=== PATIENT | female | born 1975 | race Caucasian/White ===

== ENCOUNTER 2017-06-29 15:14 | Inpatient (IN) | payer OTHER ==
[~2017-06-29] VITALS: Ht 170.1 cm; Wt 60.8 kg
[2017-06-29 15:15] VITALS: BP 108/55
[2017-06-29 16:00] VITALS: BP 132/70
[2017-06-29 16:15] LABS: BASO % 0.4 % (0.0-1.0); EOS # 0.2 10*3/uL (0.0-0.4); HEMATOCRIT 32.9 % (37.0-47.0); HEMOGLOBIN 10.2 g/dl (12.0-16.0); LYMPH # 2.1 10*3/uL (1.3-4.4); LYMPH % 23.1 % (27.0-41.0); MEAN CELL VOLUME 79.7 fl (81.0-99.0); MEAN CORPUSCULAR HGB 24.7 pg (27.0-31.0); MONO # 0.7 10*3/uL (0.1-1.0); MONO % 7.8 % (3.0-9.0); NEUT % 66.4 % (47.0-73.0); PLATELET COUNT AUTOMATED 231 10*3/uL (130-400); RED BLOOD COUNT 4.13 10*6/uL (4.10-5.10); RED CELL DISTRI WIDTH 18.1 % (0-14.5)
[2017-06-29 16:32] LABS: ACETAMINOPHEN (TYLENOL) < 2.0 ug/ml (10-30); ALBUMIN 3.1 gm/dl (3.1-4.5); ALKALINE PHOSPHATASE 53 U/L (45-117); BUN 12 mg/dl (7-24); CHLORIDE 103 mmol/L (98-107); CREATININE 0.65 mg/dL (0.55-1.02); ETHYL ALCOHOL < 3.0 mg/dl (<3); POTASSIUM 3.8 mmol/L (3.5-5.1); SGOT/AST 23 IU/L (3-35); SGPT/ALT 29 U/L (12-78); SODIUM 139 mmol/L (136-145); TOTAL PROTEIN 6.9 gm/dL (6.4-8.2)
[2017-06-29 16:34] LABS: B-hCG (QUALITATIVE) NEGATIVE (NEGATIVE)
[2017-06-29 17:00] VITALS: BP 118/70
[2017-06-29 18:15] VITALS: BP 124/62
[2017-06-29] MEDS ORDERED: GABAPENTIN800 MG PO (18:16)
[2017-06-29] MEDS ORDERED: CLONAZEPAM0.5 M2 PO (18:16)
[2017-06-29 19:16] LABS: LIPASE 246 U/L (73-393)
[2017-06-29 19:18] LABS: BETA-HCG, QUANT < 1.0 mIU/mL (1-3)
[2017-06-29 19:30] VITALS: BP 111/70; BP 90/57
[2017-06-29] MEDS ORDERED: CLONIDINE0.2 MG PO (20:01)
[2017-06-29] MEDS ORDERED: PROZAC20 MG PO (20:03)
[2017-06-29 22:11] LABS: BILIRUBIN NEGATIVE (NEGATIVE); BLOOD NEGATIVE (NEGATIVE); CLARITY CLEAR (CLEAR); COLOR YELLOW (YELLOW); GLUCOSE NEGATIVE (NEGATIVE); KETONE NEGATIVE (NEGATIVE); LEUKO ESTERASE NEGATIVE (NEGATIVE); NITRITE NEGATIVE (NEGATIVE); SPECIFIC GRAVITY 1.025 (1.005-1.030); UROBILINOGEN 0.2 E.U./dl (0.2-1.0)
[2017-06-29 22:21] LABS: URINE AMPHETAMINES < 1000 (1000ng/ml); URINE BARBITURATES < 200 (200ng/ml); URINE BENZODIAZEPINES > 200 (200ng/ml); URINE CANNABINOIDS (THC) < 50 (50ng/ml); URINE COCAINE < 300 (300ng/ml); URINE METHADONE < 300 (300ng/ml); URINE OPIATES > 300 (300ng/ml)
[2017-06-29 22:23] LABS: URINE PHENCYCLIDINE < 25 (25ng/ml)
[2017-06-29 22:30] LABS: CALCIUM OXALATE CRYSTALS 1+; RBC 0-2 rbc/hpf (0-2)
[2017-06-30] VITALS: BP 114/90
[2017-06-30 03:56] VITALS: BP 90/57
[2017-06-30 08:00] VITALS: BP 90/57
[2017-06-30 12:00] VITALS: BP 99/55
[2017-06-30 16:00] VITALS: BP 94/52
[2017-06-30 20:00] VITALS: BP 100/63
[2017-07-01] VITALS: BP 102/69
[2017-07-01 08:00] VITALS: BP 109/51
[2017-07-01 11:53] VITALS: BP 93/53
[2017-07-01 16:00] VITALS: BP 97/60
[2017-07-01 20:00] VITALS: BP 115/55
[2017-07-02] VITALS: BP 103/73
[2017-07-02 06:56] LABS: BASO # 0.1 10*3/uL (0.0-0.1); BASO % 0.9 % (0.0-1.0); EOS # 0.3 10*3/uL (0.0-0.4); EOS % 3.7 % (1.0-4.0); HEMATOCRIT 31.5 % (37.0-47.0); HEMOGLOBIN 9.9 g/dl (12.0-16.0); LYMPH # 2.4 10*3/uL (1.3-4.4); LYMPH % 31.8 % (27.0-41.0); MEAN CELL VOLUME 79.1 fl (81.0-99.0); MEAN CORPUSCULAR HGB 24.9 pg (27.0-31.0); MEAN CORPUSCULAR HGB CONC 31.4 g/dl (33.0-37.0); MONO # 0.9 10*3/uL (0.1-1.0); MONO % 11.9 % (3.0-9.0); NEUT # 3.9 10*3/uL (2.3-7.9); NEUT % 51.3 % (47.0-73.0); PLATELET COUNT AUTOMATED 198 10*3/uL (130-400); RED BLOOD COUNT 3.98 10*6/uL (4.10-5.10); RED CELL DISTRI WIDTH 17.5 % (0-14.5); WHITE BLOOD COUNT 7.5 10*3/uL (4.8-10.8)
[2017-07-02 07:33] LABS: CREATININE 0.62 mg/dL (0.55-1.02)
[2017-07-02 08:00] VITALS: BP 120/68
== END 2017-07-02 16:25 | DRG 897 ==
LOC: ED 15:14 → EDHOLD 18:03 → 4E 18:03
PROVIDERS: Internal Medicine; Nurse Practitioner Family
DX: F11.23 Opioid dependence with withdrawal (principal); E44.1 Mild protein-calorie malnutrition; D50.9 Iron deficiency anemia, unspecified; F15.10 Other stimulant abuse, uncomplicated; F32.9 Major depressive disorder, single episode, unspecified; F17.200 Nicotine dependence, unspecified, uncomplicated; R09.81 Nasal congestion; G25.81 Restless legs syndrome; M79.1 Myalgia; F41.9 Anxiety disorder, unspecified; I10 Essential (primary) hypertension; R68.83 Chills (without fever); F19.230 Other psychoactive substance dependence with withdrawal, uncomplicated; R61 Generalized hyperhidrosis; Z71.6 Tobacco abuse counseling; Z80.1 Family history of malignant neoplasm of trachea, bronchus and lung; Z87.898 Personal history of other specified conditions; Z83.3 Family history of diabetes mellitus; Z82.49 Family history of ischemic heart disease and other diseases of the circulatory system